=== PATIENT | male | born 1995 | race African-American/Black ===

== ENCOUNTER 2020-10-23 16:07 | Inpatient (IN) | payer OTHER, SELFPAY ==
[2020-10-23 16:42] VITALS: BP 120/70; PULSE 61; RESP 18; TEMP 36.7; O2SAT 100
[2020-10-23 16:53] VITALS: BMI 20.9
[2020-10-23] MEDS: Acetaminophen 325 MG TABLET 650 MG PO (18:40)
[2020-10-23] MEDS: OLANZapine 5 MG TABLET PO (18:45)
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
[2020-10-23] MEDS: traZODone HCL 50 MG TABLET PO (20:59)
[2020-10-23 21:38] VITALS: BP 127/65; PULSE 56; TEMP 36.3; O2SAT 100
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
[2020-10-24 09:32] VITALS: BP 138/85; PULSE 56; RESP 18; TEMP 36.5; O2SAT 100
[2020-10-24] MEDS: OLANZapine 5 MG TABLET PO (13:43)
[2020-10-24] MEDS: hydrOXYzine HCL 25 MG TABLET 50 MG PO (14:02)
[2020-10-24 14:50] VITALS: BMI 20.9
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
[2020-10-24 19:59] VITALS: BP 104/66; PULSE 104; RESP 16; TEMP 37.5; O2SAT 99
[2020-10-24] MEDS: traZODone HCL 50 MG TABLET PO (21:07)
[2020-10-24] MEDS: OLANZapine 10 MG TABLET PO (21:07)
[2020-10-25 06:00] VITALS: BP 127/74; PULSE 74; RESP 16; TEMP 36.4; O2SAT 97
--- NOTE | 2020-10-25 13:50 | HO.PSYCHPN ---
Subjective Subjective Date of Service: 10/25/20 Reason For Visit: Unspecified schizophrenia spectrum & other Interim History: pt reports he is doing good. comments that the food is good. states he slept well. feels the medications have been helpful to relax. no requests or complaints. planning to shower this morning. per staff, pacing, visible, wants discharge. concerned about his skin. took trazodone last NOC. Mental Status Exam Mental Status Exam Narrative: appropriately groomed and dressed, no PMA/PMR, cooperative with interview. speech incr in rate, nml amount. nml loudness and prosody, latency. thoughts linear and logical, not perseverative on his delusions of persecution. affect full range, normo-intense, non-labile. mood not assessed. no SI/HI/AVH expressed. Diagnostics Vital Signs (24Hr): Vital Signs - 24 hr 10/24/20 19:59 10/25/20 06:00 Temperature 99.5 F 97.5 F Pulse Rate 104 H 74 Respiratory Rate 16 16 Blood Pressure 104/66 127/74 Pulse Oximetry 99 97 Body Mass Index 20.9 Medications Medications Current Medications Generic Name Dose Route Start Last Admin Trade Name Freq PRN Reason Stop Dose Admin Acetaminophen 650 mg 10/23/20 16:32 10/23/20 18:40 Acetaminophen 325 Mg Tablet PO 650 mg Q6H PRN Administration Headache/Pain Mild Scale (1-3) Al Hydroxide/Mg Hydroxide 30 ml 10/23/20 16:32 Magnesium Hydrox/Alum Hydrox 30 Ml Oral.Susp PO Q6H PRN Heartburn/Nausea Hydroxyzine HCl 50 mg 10/24/20 13:58 10/24/20 14:02 Hydroxyzine Hcl 25 Mg Tablet PO 50 mg Q4H PRN Administration Anxiety Magnesium Hydroxide 30 ml 10/23/20 16:32 Milk Of Magnesia 30 Ml Oral.Susp PO DAILY PRN Constipation Nicotine Polacrilex 2 mg 10/23/20 16:42 Nicotine Polacrilex 2 Mg Gum BUCCAL Q2H PRN Nicotine Cravings Olanzapine 5 mg 10/23/20 16:43 10/24/20 13:43 Olanzapine 5 Mg Tablet PO 5 mg Q4H PRN Administration insomnia, anxiety, agitation Olanzapine 10 mg 10/24/20 21:00 10/24/20 21:07 Olanzapine 10 Mg Tablet PO 10 mg BEDTIME TARAS Administration Trazodone HCl 50 mg 10/23/20 16:32 10/24/20 21:07 Trazodone Hcl 50 Mg Tablet PO 50 mg BEDTIME PRN Administration Insomnia Allergies Allergies Allergy/AdvReac Type Severity Reaction Status Date / Time peanut Allergy Swelling Verified 10/23/20 17:08 Assessment & Plan Assessment & Plan (1) Delusional disorder currently symptomatic: Status: Acute Code(s): F22 - Delusional disorders Assessment and Plan: pt accepting olanzapine for sleep and anxiety. condition improved by second day in hospital. Greater than 50% of the session was spent on counseling and/or coordination of care Reason for contiued inpatient stay Substantial Risk for: inability to function and rapid decompensation
[2020-10-25 15:22] LABS: Estimated Average Glucose 85 mg/dL; Hemoglobin A1c % 4.6 %
[2020-10-25 15:40] LABS: Cholesterol 169 mg/dL; HDL Cholesterol 38 mg/dL; LDL Cholesterol Calculated 107 mg/dl; Triglycerides 122 mg/dL
[2020-10-25] MEDS: hydrOXYzine HCL 25 MG TABLET 50 MG PO ×2 (17:48→22:52)
[2020-10-25] MEDS: OLANZapine 5 MG TABLET PO (17:48)
[2020-10-25 18:00] VITALS: BP 129/76; PULSE 75; RESP 16; TEMP 36.7; O2SAT 98
[2020-10-25] MEDS: OLANZapine 10 MG TABLET PO (20:22)
[2020-10-26 06:00] VITALS: BP 127/79; PULSE 50; RESP 16; TEMP 36.6; O2SAT 99
[2020-10-26] MEDS: hydrOXYzine HCL 25 MG TABLET 50 MG PO ×2 (07:45→15:29)
--- NOTE | 2020-10-26 15:55 | P.PNPSI_ITS ---
Subjective Subjective Date of Service: 10/26/20 Reason For Visit: Unspecified schizophrenia spectrum & other Interim History: pt reports he is sleeping OK and getting along OK with peers. he notes he has access to headphones and he is really enjoying that. appears distracted at points, looking about the room, seeming to have lost his train of thought. denies any such distraction or thought disorder. MD asks pt if there is anything MD might do for pt today, and pt suggests discharge. he is informed discharge is not in the plan for the near future and some more time resting and relaxing and space away from his environment at home are in order. pt accepts this information calmly and has no other questions or concerns for MD. per staff, med-compliant. mostly sleeping yesterday. up at 5 pm yesterday afternoon and said he needs to discharge [facility]. no other notable events or behaviors. Mental Status Exam Mental Status Exam Narrative: appropriately groomed and dressed, no PMA/PMR, cooperative with interview. some bizarre pausing and looking about the room as if distracted or experiencing AH, denies any strange experiences and states he was just listening to MD's words yet has lost his place in the conversation. speech nml in rate, amount, loudness and prosody, latency. thoughts linear and logical, not perseverative on his delusions of persecution. affect full range, normo- intense, non-labile. mood not assessed. no SI/HI/AVH expressed. Diagnostics Vital Signs (24Hr): Vital Signs - 24 hr 10/25/20 18:00 10/26/20 06:00 Temperature 98.1 F 97.8 F Pulse Rate 75 50 Respiratory Rate 16 16 Blood Pressure 129/76 127/79 Pulse Oximetry 98 99 Body Mass Index 20.9 Labs Labs: Laboratory Results - last 48 hr 10/25/20 10/25/20 14:53 14:53 Estimat Average Glucose 85 Hemoglobin A1c % 4.6 Triglycerides 122 Cholesterol 169 LDL Cholesterol, Calc 107 HDL Cholesterol 38 Medications Medications Current Medications Generic Name Dose Route Start Last Admin Trade Name Freq PRN Reason Stop Dose Admin Acetaminophen 650 mg 10/23/20 16:32 10/23/20 18:40 Acetaminophen 325 Mg Tablet PO 650 mg Q6H PRN Administration Headache/Pain Mild Scale (1-3) Al Hydroxide/Mg Hydroxide 30 ml 10/23/20 16:32 Magnesium Hydrox/Alum Hydrox 30 Ml Oral.Susp PO Q6H PRN Heartburn/Nausea Hydroxyzine HCl 50 mg 10/24/20 13:58 10/26/20 15:29 Hydroxyzine Hcl 25 Mg Tablet PO 50 mg Q4H PRN Administration Anxiety Magnesium Hydroxide 30 ml 10/23/20 16:32 Milk Of Magnesia 30 Ml Oral.Susp PO DAILY PRN Constipation Nicotine Polacrilex 2 mg 10/23/20 16:42 Nicotine Polacrilex 2 Mg Gum BUCCAL Q2H PRN Nicotine Cravings Olanzapine 5 mg 10/23/20 16:43 10/25/20 17:48 Olanzapine 5 Mg Tablet PO 5 mg Q4H PRN Administration insomnia, anxiety, agitation Olanzapine 10 mg 10/24/20 21:00 10/25/20 20:22 Olanzapine 10 Mg Tablet PO 10 mg BEDTIME TARAS Administration Trazodone HCl 50 mg 10/23/20 16:32 10/24/20 21:07 Trazodone Hcl 50 Mg Tablet PO 50 mg BEDTIME PRN Administration Insomnia Allergies Allergies Allergy/AdvReac Type Severity Reaction Status Date / Time peanut Allergy Swelling Verified 10/23/20 17:08 Assessment & Plan Assessment & Plan (1) Delusional disorder currently symptomatic: Status: Acute Code(s): F22 - Delusional disorders Assessment and Plan: pt accepting olanzapine for sleep and anxiety. condition improved by second day in hospital, progress maintained on day 3. Greater than 50% of the session was spent on counseling and/or coordination of c are Reason for contiued inpatient stay Substantial Risk for: inability to function and rapid decompensation
[2020-10-26] MEDS: OLANZapine 5 MG TABLET PO (16:20)
[2020-10-26 18:00] VITALS: BP 122/78; PULSE 100; RESP 18; TEMP 36.6; O2SAT 99
[2020-10-26] MEDS: OLANZapine 10 MG TABLET PO (22:32)
[2020-10-26] MEDS: traZODone HCL 50 MG TABLET PO (22:33)
[2020-10-27] MEDS: hydrOXYzine HCL 25 MG TABLET 50 MG PO ×2 (00:48→22:58)
[2020-10-27] MEDS: traZODone HCL 50 MG TABLET PO ×2 (00:48→22:58)
[2020-10-27 06:00] VITALS: BP 123/75; PULSE 71; RESP 16; TEMP 36.4; O2SAT 98
--- NOTE | 2020-10-27 13:44 | HO.PSYCHPN ---
Subjective Subjective Date of Service: 10/27/20 Reason For Visit: Unspecified schizophrenia spectrum & other Interim History: pt reports he is feeling antsy and has been taking a lot of PRNs bcse he is trying to get through my time here without losing my cool. wonders if MD is keeping him here to see if MD can get him to blow up. also c/o poor sleep, going in and out of sleep throughout the night. MD suggests increasing his HS sleep med; pt is ambivalent. no other complaints or requests. paranoid flair. per staff asking for DC. taking lots of PRNs. atarax x2, zyprexa x1, trazodone x2, and another atarax at night. slept from 0100 on per staff observation but c/o poor sleep after waking up this morning. Mental Status Exam Mental Status Exam Narrative: appropriately groomed and dressed, no PMA/PMR, cooperative with interview. speech nml in rate, amount, loudness and prosody, latency. thoughts linear and logical. paranoid thought content re MD's intentions. affect constricted, normo-intense, non-labile. mood not assessed. no SI/HI/AVH expressed. Diagnostics Vital Signs (24Hr): Vital Signs - 24 hr 10/26/20 18:00 10/27/20 06:00 Temperature 97.8 F 97.6 F Pulse Rate 100 71 Respiratory Rate 18 16 Blood Pressure 122/78 123/75 Pulse Oximetry 99 98 Body Mass Index 20.9 Labs Labs: Laboratory Results - last 48 hr 10/25/20 10/25/20 14:53 14:53 Estimat Average Glucose 85 Hemoglobin A1c % 4.6 Triglycerides 122 Cholesterol 169 LDL Cholesterol, Calc 107 HDL Cholesterol 38 Medications Medications Current Medications Generic Name Dose Route Start Last Admin Trade Name Freq PRN Reason Stop Dose Admin Acetaminophen 650 mg 10/23/20 16:32 10/23/20 18:40 Acetaminophen 325 Mg Tablet PO 650 mg Q6H PRN Administration Headache/Pain Mild Scale (1-3) Al Hydroxide/Mg Hydroxide 30 ml 10/23/20 16:32 Magnesium Hydrox/Alum Hydrox 30 Ml Oral.Susp PO Q6H PRN Heartburn/Nausea Hydroxyzine HCl 50 mg 10/24/20 13:58 10/27/20 00:48 Hydroxyzine Hcl 25 Mg Tablet PO 50 mg Q4H PRN Administration Anxiety Magnesium Hydroxide 30 ml 10/23/20 16:32 Milk Of Magnesia 30 Ml Oral.Susp PO DAILY PRN Constipation Nicotine Polacrilex 2 mg 10/23/20 16:42 Nicotine Polacrilex 2 Mg Gum BUCCAL Q2H PRN Nicotine Cravings Olanzapine 5 mg 10/23/20 16:43 10/26/20 16:20 Olanzapine 5 Mg Tablet PO 5 mg Q4H PRN Administration insomnia, anxiety, agitation Olanzapine 20 mg 10/27/20 21:00 Olanzapine 10 Mg Tablet PO BEDTIME TARAS Trazodone HCl 50 mg 10/23/20 16:32 10/27/20 00:48 Trazodone Hcl 50 Mg Tablet PO 50 mg BEDTIME PRN Administration Insomnia Allergies Allergies Allergy/AdvReac Type Severity Reaction Status Date / Time peanut Allergy Swelling Verified 10/23/20 17:08 Assessment & Plan Assessment & Plan (1) Delusional disorder currently symptomatic: Status: Acute Code(s): F22 - Delusional disorders Assessment and Plan: pt accepting olanzapine for sleep and anxiety. condition improved by second day in hospital, progress maintained on day 3. increaed paranoia evident on day 4. olanzapine 10 at HS increased to 20 at HS as of 10/27. Greater than 50% of the session was spent on counseling and/or coordination of care Reason for contiued inpatient stay Substantial Risk for: harm to others, inability to function and rapid decompensation
[2020-10-27 22:12] VITALS: BP 132/91; PULSE 99; TEMP 36.6
[2020-10-27] MEDS: OLANZapine 10 MG TABLET 20 MG PO (22:58)
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
[2020-10-28 09:10] VITALS: BP 150/83; PULSE 83; RESP 18; TEMP 36.9; O2SAT 100
--- NOTE | 2020-10-28 13:44 | MHC.CLN ---
NUTRITION FOLLOW UP PATIENT REPORTED TO [facility] THAT HE IS EATING 'FINE'. DIET=REGULAR. NO SUPPLEMENT PER PATIENT PREFERENCE. NO NEW WEIGHTS. FOLLOWING.
[2020-10-28 18:00] VITALS: BP 119/80; PULSE 86; RESP 18; TEMP 36.6; O2SAT 100
[2020-10-28] MEDS: OLANZapine 5 MG TABLET PO (18:22)
[2020-10-28] MEDS: OLANZapine 10 MG TABLET 20 MG PO (20:45)
[2020-10-28] MEDS: traZODone HCL 50 MG TABLET PO (22:30)
[2020-10-29 06:00] VITALS: BP 131/78; PULSE 62; RESP 16; TEMP 36.5; O2SAT 100
[2020-10-29] MEDS: hydrOXYzine HCL 25 MG TABLET 50 MG PO ×2 (09:25→20:15)
[2020-10-29] MEDS: OLANZapine 5 MG TABLET PO (09:25)
[2020-10-29] MEDS: Acetaminophen 325 MG TABLET 650 MG PO (10:02)
--- NOTE | 2020-10-29 11:39 | HO.PSYCHPN ---
Subjective Subjective Date of Service: 10/29/20 Reason For Visit: Unspecified schizophrenia spectrum & other Interim History: pt reports he is feeling fine, yesterday was status quo. states his mother called last night and he had a simple conversation with her. she just called to check on him and see how he was doing. MD notes he response to her seems awful calm toward someone he believes is trying to poison him. he asks, what do you want me to do? make a scene? MD inquires as to his conception of the whole stay here, and if it's been helpful. he tepidly endorses that it was been a bit helpful, similar attitude toward medication. he was encouraged to continue to take medications and to follow up with outpt providers. he expresses some doubts about his delusional system now, stating he just knows people have been lying to him... the details seem a little foggier to him now than they were at admission. asking for discharge tomorrow at 1000. per staff, 3-day notice matures tomorrow. not attending groups, listening to music a lot, which appears to soothe him. states he is ready to leave. pleasant with staff and less delusional. Mental Status Exam Mental Status Exam Narrative: appropriately groomed and dressed, no PMA/PMR, cooperative with interview. speech nml in rate, amount, loudness and prosody, latency. thoughts linear and logical. some paranoid thought content re MD's intentions and people lying to him, but the acuity is lessened. affect constricted, normo-intense, non-labile. mood euthymic. SI/HI/AVH. Diagnostics Vital Signs (24Hr): Vital Signs - 24 hr 10/28/20 18:00 10/29/20 06:00 Temperature 97.9 F 97.7 F Pulse Rate 86 62 Respiratory Rate 18 16 Blood Pressure 119/80 131/78 Pulse Oximetry 100 100 Body Mass Index 20.9 Medications Medications Current Medications Generic Name Dose Route Start Last Admin Trade Name Freq PRN Reason Stop Dose Admin Acetaminophen 650 mg 10/23/20 16:32 10/29/20 10:02 Acetaminophen 325 Mg Tablet PO 650 mg Q6H PRN Administration Headache/Pain Mild Scale (1-3) Al Hydroxide/Mg Hydroxide 30 ml 10/23/20 16:32 Magnesium Hydrox/Alum Hydrox 30 Ml Oral.Susp PO Q6H PRN Heartburn/Nausea Hydroxyzine HCl 50 mg 10/24/20 13:58 10/29/20 09:25 Hydroxyzine Hcl 25 Mg Tablet PO 50 mg Q4H PRN Administration Anxiety Magnesium Hydroxide 30 ml 10/23/20 16:32 Milk Of Magnesia 30 Ml Oral.Susp PO DAILY PRN Constipation Nicotine Polacrilex 2 mg 10/23/20 16:42 Nicotine Polacrilex 2 Mg Gum BUCCAL Q2H PRN Nicotine Cravings Olanzapine 5 mg 10/23/20 16:43 10/29/20 09:25 Olanzapine 5 Mg Tablet PO 5 mg Q4H PRN Administration insomnia, anxiety, agitation Olanzapine 20 mg 10/27/20 21:00 10/28/20 20:45 Olanzapine 10 Mg Tablet PO 20 mg BEDTIME TARAS Administration Trazodone HCl 50 mg 10/23/20 16:32 10/28/20 22:30 Trazodone Hcl 50 Mg Tablet PO 50 mg BEDTIME PRN Administration Insomnia Allergies Allergies Allergy/AdvReac Type Severity Reaction Status Date / Time peanut Allergy Swelling Verified 10/23/20 17:08 Assessment & Plan Assessment & Plan (1) Delusional disorder currently symptomatic: Status: Acute Code(s): F22 - Delusional disorders Assessment and Plan: pt accepting olanzapine for sleep and anxiety. condition improved by second day in hospital, progress maintained on day 3. increased paranoia evident on day 4. olanzapine 10 at HS increased to 20 at HS as of 10/27. pt appears moderately less paranoid by 10/29. section 12 matures 10/30; pt is not committable and will be discharged 10/30. Greater than 50% of the session was spent on counseling and/or coordination of care Reason for contiued inpatient stay Substantial Risk for: harm to others, inability to function and rapid decompensation
[2020-10-29 18:00] VITALS: BP 125/74; PULSE 92; RESP 18; TEMP 37; O2SAT 99
[2020-10-29] MEDS: OLANZapine 10 MG TABLET 20 MG PO (20:15)
[2020-10-29] MEDS: traZODone HCL 50 MG TABLET PO (22:17)
[2020-10-30 06:00] VITALS: BP 135/81; PULSE 71; RESP 20; TEMP 36.9; O2SAT 100
[2020-10-30] MEDS: hydrOXYzine HCL 25 MG TABLET 50 MG PO (06:35)
--- NOTE | 2020-10-30 09:58 | PC.NURSE ---
Patient is alert, fully oriented, pleasant and cooperative with discharge process. Patient education done related to prescribed medications, coping skills and crisis numbers. Patient verbalized understanding this education. He denies ideation plan or intent to harm self or others. He denies current physical complaint. Madelinean agrees to contact crisis as needed.
--- NOTE | 2020-10-30 10:13 | P.DS_ITS ---
DS: Providers Provider Date of Service: 10/30/20 Date of admission: 10/23/20 16:07 Primary care physician: None Physician Consults: 10/23/20 16:32 Consult to Hospitalist Routine Consulting Provider: Hospitalist Reason For Exam: H&P for M3 admission DS: Diagnosis Discharge Diagnosis (1) Delusional disorder currently symptomatic: Status: Acute DS: Medications Discharge Medications Home Medications: Home Medications Medication Instructions Recorded Confirmed No Known Home Meds 10/26/20 10/26/20 Previous Rx's Medication Instructions Recorded olanzapine 5 mg PO DAILY PRN 30 Days #30 tab 10/29/20 olanzapine 20 mg PO BEDTIME 30 Days #60 tab 10/29/20 Discharge Plan Discharge Patient Disposition: Home, Self-Care Discharge Diagnosis: Delusional Disorder Referrals: Fabienne Black (therapy) [Other] - 11/03/20 3:00 pm (Telehealth Appointment) Aaliyah Alfaro (psychiatry) [Other] - 11/27/20 12:00 pm (Telehealth Appointment) Aaliyah Alfaro (psychiatry) [Other] - 12/26/20 9:20 am (Telehealth Appointment) [facility] [Provider Group] - 1 Week (This clinic has walk in hours. Please follow up within one week at walk in ( tuesday through tuesday 8:30-4) or call to make an appointment; [phone]) Physician,None [Primary Care Provider] - 1 Week Discharge Medications: New olanzapine 10 mg Tablet 20 mg PO BEDTIME 30 Days Qty: 60 RF: 0 olanzapine 5 mg Tablet 5 mg PO DAILY PRN (Reason: insomnia, anxiety, agitation) 30 Days Qty: 30 RF: 0 No Action No Known Home Meds RF: 0 Discharge Orders: Discharge Order (Routine); Ordered 10/30/20 Ordered By: Dez Lin Diet: regular diet Activity on Discharge: As tolerated Stand Alone Forms: Patient Portal Discharge page, Community Support Care Plan Goals: broaden array of daily activities and persons interacted with. start with spending more time outside and move toward establishing friendships. work with therapist on behavioral change goals. maintain independent living in the community. remain in treatment with mental health prescriber and take medications as directed. Health Concerns: no health concerns presently Plan of Treatment: attend therapy and medication management appointments as scheduled. take medication as prescribed. Assessment: safe for discharge. Discharge Date/Time: 10/30/20 10:00 Mental Status Exam Mental Status Exam Narrative: appropriately groomed and dressed, no PMA/PMR, cooperative with interview. speech nml in rate, amount, loudness and prosody, latency. thoughts linear and logical. no overt paranoia or delusional content broached. affect constricted, normo-intense, non-labile. mood cool. no SI/HI/AVH. Data Data Completed and Pending Completed studies during hospitalization [Text1]: 10/25/20 10/25/20 14:53 14:53 Estimat Average Glucose 85 Hemoglobin A1c % 4.6 Triglycerides 122 Cholesterol 169 LDL Cholesterol, Calc 107 HDL Cholesterol 38 DS: Summary Hospital Course Hospital Course: per Riley GREENWOOD 10/24 Admission Note: pt reports that his mother, friends, and GF have turned against him. he believes his family members have been taking money from his bank accounts and fraudulently putting houses and cars under his name without his consent. he believes his family members are poisoning him and that people are trying to kill him. he recently became agitated at home with his mother and someone called the police and an ambulance came and brought him to the hospital. on interview with he spends a long time attempting to explain his experience to MD and becomes frustrated and ultimately agitated as MD declines to collude with him and encourages him to take neuroleptic medication. he refuses to consider such medication but does agree to take medication which might help with anxiety. Past Psychiatric History: pt reports h/o feeling down about 2 years ago and having been hospitalized at [facility] for about a week. he reports he was given anti-depressants there and he felt better in a week and discharged. he states he stopped taking the medication after discharge and that things were cool until recently. per Riley GREENWOOD 10/25 Progress Note: pt reports he is doing good. comments that the food is good. states he slept well. feels the medications have been helpful to relax. no requests or complaints. planning to shower this morning. per staff, pacing, visible, wants discharge. concerned about his skin. took trazodone last NOC. per Riley GREENWOOD 10/26 Progress Note: pt reports he is sleeping OK and getting along OK with peers. he notes he has access to headphones and he is really enjoying that. appears distracted at points, looking about the room, seeming to have lost his train of thought. denies any such distraction or thought disorder. MD asks pt if there is anything MD might do for pt today, and pt suggests discharge. he is informed discharge is not in the plan for the near future and some more time resting and relaxing and space away from his environment at home are in order. pt accepts this information calmly and has no other questions or concerns for MD. per staff, med-compliant. mostly sleeping yesterday. up at 5 pm yesterday afternoon and said he needs to discharge NELLA. no other notable events or behaviors. per Riley GREENWOOD 10/27 Progress Note: pt reports he is feeling antsy and has been taking a lot of PRNs bcse he is trying to get through my time here without losing my cool. wonders if MD is keeping him here to see if MD can get him to blow up. also c/o poor sleep, going in and out of sleep throughout the night. MD suggests increasing his HS sleep med; pt is ambivalent. no other complaints or requests. paranoid flair. per staff asking for DC. taking lots of PRNs. atarax x2, zyprexa x1, trazodone x2, and another atarax at night. slept from 0100 on per staff observation but c/o poor sleep after waking up this morning. per Chalino MURO 10/28 Progress Note: Pt guarded and irritable. He appeared very suspicious of all questions asked and repeatedly told this telegraphic typewriter installer he knows we're playing mind games. He reports he is here in hospital because people were not telling the truth. He reports he was not being physically assaultive towards family but sister was concern about him. He quickly became increasingly more suspicious and guarded towards this telegraphic typewriter installer stating he would not talk anymore. He left room quietly. He denied SI/HI. He denies VH/AH but appears internally preoccupied. per Riley GREENWOOD 10/29 Progress Note: Pt guarded and irritable. He appeared very suspicious of all questions asked and repeatedly told this telegraphic typewriter installer he knows we're playing mind games. He reports he is here in hospital because people were not telling the truth. He reports he was not being physically assaultive towards family but sister was concern about him. He quickly became increasingly more suspicious and guarded towards this telegraphic typewriter installer stating he would not talk anymore. He left room quietly. He denied SI/HI. He denies VH/AH but appears internally preoccupied. 10/30: pt remains calm, cooperative. if not affable at least not hostile. states his mother is aware he is coming home today. MD educates pt about need for compliance with medications and mental health appointments. pt appears ambivalent at best on these topics. will be taking a cab home today. Precis: pt accepting olanzapine for sleep and anxiety. condition improved by second day in hospital, progress maintained on day 3. increased paranoia evident on day 4. olanzapine 10 at HS increased to 20 at HS as of 10/27. pt appears moderately less paranoid by 10/29. section 12 matures 10/30; pt is not committable and was discharged 10/30. Time Spent with Patient Time attestation: Total time spent providing and/or coordinating discharge services:
== END 2020-10-30 10:00 | disposition home or self-care (01) | DRG 760 ==
PROVIDERS: Admitting Provider Psychiatry & Neurology Psychiatry; Visit Provider Psychiatry & Neurology Psychiatry
DX: F22 Delusional disorders (principal); F17.210 Nicotine dependence, cigarettes, uncomplicated; Z71.6 Tobacco abuse counseling
CPT/HCPCS: 36415; 80061; 83036